=== PATIENT | male | born 1950 | race Caucasian/White ===

== ENCOUNTER → 2016-10-20 | Outpatient (CLI) | payer MEDICARE ==
[~2016-10-20] MED LIST: CEPH500C3 PO; IBUP800 PO; LISI10TA PO
[2016-10-20 08:44] LABS: BASOPHIL % 0.5 % (0.0-2.0); EOSINOPHIL # 0.4 TH/MM3 (0-0.4); EOSINOPHIL % 5.1 % (0.0-4.0); HEMATOCRIT 46.3 % (39.0-51.0); HEMO FLAGS DIFF FINAL; LYMPH % 29.7 % (9.0-44.0); LYMPHOCYTE # 2.1 TH/MM3 (1.0-4.8); MEAN CELL VOLUME 91.4 FL (80.0-100.0); MEAN CORPUSCULAR HEMOGLOBIN 31.3 PG (27.0-34.0); MEAN CORPUSCULAR HGB CONC 34.3 % (32.0-36.0); MONO % 7.4 % (0.0-8.0); NEUT % 57.3 % (16.0-70.0); PLATELET COUNT 190 TH/MM3 (150-450); RED BLOOD COUNT 5.06 MIL/MM3 (4.50-5.90); RED CELL DISTRIBUTION WIDTH 14.5 % (11.6-17.2)
--- NOTE | 2016-10-21 10:44 | EKG ---
Date Performed: 10/20/2016 Time Performed: 07:58:35 PTAGE: 66 years EKG: Sinus rhythm NORMAL ECG NO PREVIOUS TRACING DOCTOR: Vernon Mayer Interpretating Date/Time 10/21/2016 10:43:26
== END ==
LOC: HCAV 07:50
PROVIDERS: ATTEND Ophthalmology
DX: Z01.810 Encounter for preprocedural cardiovascular examination (principal); Z01.818 Encounter for other preprocedural examination; H25.11 Age-related nuclear cataract, right eye
CPT/HCPCS: 36415; 85025; 93005

== ENCOUNTER 2017-06-04 17:25 | Emergency (ER) | payer MEDICARE ==
[~2017-06-04] VITALS: Ht 177.8 cm; Wt 97.6 kg
[2017-06-04 17:30] VITALS: BP 162/84; PULSE 84; RESP 16; TEMP 98.3; O2SAT 94
[2017-06-04] MEDS ORDERED: LISI10TA PO (18:09)
--- NOTE | 2017-06-04 19:01 | PD ---
HPI . Lab work Chief Complaint: Medical Clearance Time Seen by Provider: 18:58 Travel History International Travel<30 days: No Contact w/Intl Traveler<30days: No Traveled to known affect area: No History of Present Illness HPI This patient presents requesting lab work. He states that he is having emergency surgery done tomorrow in his retina. He has an order for CBC and a comprehensive metabolic panel. I am not really sure how he ended up in the emergency department. 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) Tetanus Vaccination: < 5 Years Influenza Vaccination: No Past Surgical History Abdominal Surgery: Yes (REMOVAL OF ADHESIONS MANY YEARS AGO ABDOMEN) Genitourinary Surgery: Yes (LEFT NEPHRECTOMY, ) Social History Alcohol Use: No Tobacco Use: Yes (APPROX 5 CIGARETTES A DAY) Substance Use: Yes (marijuana ) Allergies-Medications (Allergen,Severity, Reaction): Coded Allergies: No Known Allergies (Unverified Adverse Reaction, Unknown, 06/04/17) Reported Meds & Prescriptions Reported Meds & Active Scripts Active Reported Lisinopril-Hctz 10-12.5 Mg Tab 1 Tab PO DAILY Physical Exam Narrative GENERAL: Awake and alert and in no acute distress. SKIN: Warm and dry. HEAD: Normocephalic/atraumatic. EYES: Pupils are equal. Extraocular movements are intact. Distally NECK: Normal range of motion. Actively RESPIRATORY: Nonlabored respirations. Bili MUSCULOSKELETAL: Atraumatic. NEUROLOGICAL: Nonfocal. PSYCHIATRIC: Appropriate mood and affect. Data Data Last Documented VS Vital Signs Date Time Temp Pulse Resp B/P (MAP) Pulse Ox O2 Delivery O2 Flow Rate FiO2 06/04/17 17:30 98.3 84 16 162/84 (110) 94 Orders Orders Complete Blood Count With Diff (06/04/17 18:58) Comprehensive Metabolic Panel (06/04/17 18:58) MDM Medical Decision Making Medical Screen Exam Complete: Yes Emergency Medical Condition: Yes Differential Diagnosis There is no differential diagnosis for this patient. He presents requesting outpatient labs. Narrative Course This patient presents with an order for CBC and a CMP. I have ordered these for him. Diagnosis Primary Impression: Patient request for diagnostic testing Disposition: 01 DISCHARGE HOME Condition: Stable Angeles Stewart MD Jun 04, 2017 19:01
[2017-06-04 19:13] LABS: AUTOMATED NEUTROPHIL # 5.7 TH/MM3 (1.8-7.7); BASOPHIL # 0.1 TH/MM3 (0-0.2); BASOPHIL % 1.1 % (0.0-2.0); EOSINOPHIL # 0.3 TH/MM3 (0-0.4); EOSINOPHIL % 3.4 % (0.0-4.0); HEMATOCRIT 47.4 % (39.0-51.0); HEMOGLOBIN 16.7 GM/DL (13.0-17.0); LYMPH % 27.7 % (9.0-44.0); LYMPHOCYTE # 2.5 TH/MM3 (1.0-4.8); MEAN CELL VOLUME 92.8 FL (80.0-100.0); MEAN CORPUSCULAR HEMOGLOBIN 32.6 PG (27.0-34.0); MEAN CORPUSCULAR HGB CONC 35.2 % (32.0-36.0); MEAN PLATELET VOLUME 7.6 FL (7.0-11.0); MONO % 5.9 % (0.0-8.0); MONOCYTE # 0.5 TH/MM3 (0-0.9); NEUT % 61.9 % (16.0-70.0); PLATELET COUNT 229 TH/MM3 (150-450); RED CELL DISTRIBUTION WIDTH 13.3 % (11.6-17.2); WHITE BLOOD COUNT 9.1 TH/MM3 (4.0-11.0)
[2017-06-04 19:21] LABS: CHLORIDE 104 MEQ/L (98-107); SODIUM (NA) 140 MEQ/L (136-145)
[2017-06-04 19:24] LABS: ALBUMIN 4.2 GM/DL (3.4-5.0); BICARBONATE 28.7 MEQ/L (21.0-32.0); CALCIUM 9.9 MG/DL (8.5-10.1); GLUCOSE,RANDOM 81 MG/DL (74-106)
[2017-06-04 19:25] LABS: BLOOD UREA NITROGEN 30 MG/DL (7-18)
[2017-06-04 19:27] LABS: ALT (GPT) 53 U/L (12-78); AST (GOT) 18 U/L (15-37); GLOMERULAR FILTRATION RATE 41 ML/MIN (>89)
[2017-06-04 19:29] LABS: TOTAL BILIRUBIN ADULT 0.4 MG/DL (0.2-1.0); TOTAL PROTEIN 8.1 GM/DL (6.4-8.2)
[2017-06-04 19:30] LABS: ALKALINE PHOSPHATASE 72 U/L (45-117)
== END 2017-06-04 19:34 | disposition home or self-care (01) ==
LOC: PHED 17:25 → PHEFT 19:34
DX: Z01.812 Encounter for preprocedural laboratory examination (principal); I10 Essential (primary) hypertension; F12.90 Cannabis use, unspecified, uncomplicated; F17.210 Nicotine dependence, cigarettes, uncomplicated
CPT/HCPCS: 80053; 85025; 99281